=== PATIENT | female | born 1985 ===

== ENCOUNTER 2022-11-02 18:07 | Emergency (ER) | payer MEDICAID ==
[~2022-11-02] VITALS: Ht 154.9 cm; Wt 59.0 kg
[2022-11-02] MEDS ORDERED: METOCLOPRAMIDE HCL 10 MG TABLET PO ONE (18:45)
[2022-11-02] MEDS ORDERED: KETOROLAC TROMETHAMINE 30 MG INJ IM ONE (18:45)
[2022-11-02] MEDS ORDERED: METOCLOPRAMIDE HCL 10 MG TABLET ONE (18:46)
[2022-11-02] MEDS ORDERED: KETOROLAC TROMETHAMINE 30 MG INJ ONE (18:46)
[2022-11-02 19:29] LABS: *URINE HCG, QUAL NEGATIVE (NEGATIVE)
[2022-11-02] MEDS ORDERED: SUMATRIPTAN SUCCINATE 6 MG/0.5 ML VIAL SQ ONE ×2 (19:53→20:00)
[2022-11-02] MEDS ORDERED: ONDANSETRON 4 MG/2 ML VIAL ONE (20:02)
[2022-11-02] MEDS ORDERED: ONDANSETRON 4 MG/2 ML VIAL IM ONE (20:15)
[2022-11-02] MEDS ORDERED: DEXAMETHASONE 4 MG TABLET PO ONE (20:45)
[2022-11-02 20:59] VITALS: BP 117/70; TEMP 98.9; O2SAT 99
== END 2022-11-02 20:55 | disposition home or self-care (01) ==
LOC: ER 18:09
DX: G43.909 Migraine, unspecified, not intractable, without status migrainosus (principal); R11.2 Nausea with vomiting, unspecified
CPT/HCPCS: 99284; 84703; 96372 ×3; J1885; J2405; J3030; A4663; J8597

== ENCOUNTER 2022-11-22 18:30 | Emergency (ER) | payer MEDICAID, OTHER ==
[~2022-11-22] VITALS: Ht 157.5 cm; Wt 59.0 kg
[2022-11-22] MEDS ORDERED: ONDANSETRON ODT 4 MG TAB.RAPDIS SL ONE (19:45)
[2022-11-22] MEDS ORDERED: IV NORMAL SALINE 1000 ML BAG IV ONE (19:45)
[2022-11-22] MEDS ORDERED: MECLIZINE HCL 25 MG TABLET PO ONE (19:45)
[2022-11-22] MEDS ORDERED: ONDANSETRON ODT 4 MG TAB.RAPDIS ONE (19:52)
[2022-11-22] MEDS ORDERED: MECLIZINE HCL 25 MG TABLET ONE (19:52)
[2022-11-22 19:54] LABS: BASOPHILS % (AUTO) 0.2 % (0.0-2.0); EOSINOPHILS % (AUTO) 0.3 % (0.0-7.0); HEMATOCRIT 42.8 % (31.2-41.9); HEMOGLOBIN 14.4 g/dL (10.9-14.3); LYMPHOCYTES # (AUTO) 2.3 K/uL (0.8-4.8); MEAN CORPUSCULAR HEMOGLOBIN 29.3 uug (24.7-32.8); MEAN CORPUSCULAR HGB CONC 34 g/dL (32.3-35.6); MEAN CORPUSCULAR VOLUME 87.1 fL (75.5-95.3); MONOCYTES # (AUTO) 1.1 K/uL (0.1-1.30); MONOCYTES % (AUTO) 8.2 % (0.0-11.0); NEUTROPHILS # (AUTO) 10.1 K/uL (1.8-8.9); NEUTROPHILS % (AUTO) 74.3 % (38.5-71.5); PLATELET COUNT (AUTO) 396 K/uL (179-408); RED BLOOD CELL COUNT(AUTO) 4.92 MIL/uL (3.63-4.92); WHITE BLOOD COUNT (AUTO) 13.6 K/uL (3.8-11.8)
[2022-11-22 19:58] LABS: DIFFERENTIAL COMMENT 1
[2022-11-22 20:02] LABS: CALCIUM 9.9 mg/dL (8.5-10.1); CARBON DIOXIDE 27 mmol/L (21-32); CHLORIDE 105 mmol/L (98-107); CREATININE 0.5 mg/dL (0.6-1.3); GLUCOSE 112 mg/dL (74-106); POTASSIUM 4.4 mmol/L (3.5-5.1); SODIUM SERUM 141 mmol/L (136-145); UREA NITROGEN, BLOOD 12 mg/dL (7-18)
[2022-11-22 20:08] LABS: ALANINE AMINOTRANSFERASE 54 U/L (14-59); ALBUMIN 3.6 g/dL (3.4-5.0); ALKALINE PHOSPHATASE 80 U/L (50-136); ASPARTATE AMINOTRANSFERASE 16 U/L (15-37); BILIRUBIN,DIRECT 0.2 mg/dL (0.0-0.2); BILIRUBIN,TOTAL 0.8 mg/dL (0.2-1.0); TOTAL PROTEIN, SERUM 7.7 g/dL (6.4-8.2)
[2022-11-22 21:21] LABS: *AMPHETAMINE, URINE NEGATIVE (NEGATIVE); *BARBITURATE, URINE NEGATIVE (NEGATIVE); *BENZODIAZEPINE, URINE NEGATIVE (NEGATIVE); *CANNABINOID, URINE NEGATIVE (NEGATIVE); *COCCAINE, URINE NEGATIVE (NEGATIVE); *OPIATE, URINE NEGATIVE (NEGATIVE); *PHENCYCLIDINE SCREEN,URINE NEGATIVE (NEGATIVE); FENTANYL, URINE NEGATIVE (NEGATIVE)
[2022-11-22] MEDS ORDERED: ONDA4TAB11 PO (22:11)
[2022-11-22] MEDS ORDERED: MECL-159 PO (22:11)
[2022-11-22 22:16] VITALS: BP 118/69; O2SAT 98
== END 2022-11-22 22:16 | disposition home or self-care (01) ==
LOC: ER 18:32
DX: R42 Dizziness and giddiness (principal); R11.10 Vomiting, unspecified; G43.909 Migraine, unspecified, not intractable, without status migrainosus
CPT/HCPCS: 99284; 96360; 70450; 96361; 80076; 80048; 85025; 36415; 93005; 80307; J7040; A4663; J8597; Q0162

== ENCOUNTER 2025-03-06 21:56 | Emergency (ER) | payer MEDICAID, OTHER ==
[~2025-03-06] VITALS: Ht 154.9 cm; Wt 63.5 kg
[~2025-03-06 21:56] MED LIST: ONDA-243 PO; [UNRECOGNIZED DRUG - CODE] PO
[2025-03-06 22:09] VITALS: BP 152/95
[2025-03-06] MEDS ORDERED: KETOROLAC TROMETHAMINE 30 MG INJ ONE (23:33)
[2025-03-06] MEDS ORDERED: PROCHLORPERAZINE EDISYLATE 10 MG/2 ML VIAL ONE (23:33)
[2025-03-06] MEDS ORDERED: diphenhydrAMINE 50 MG/1 ML VIAL ONE (23:33)
[2025-03-06] MEDS: diphenhydrAMINE 50 MG/1 ML VIAL IV ONE (23:51)
[2025-03-06] MEDS: PROCHLORPERAZINE EDISYLATE 10 MG/2 ML VIAL IV ONE (23:51)
[2025-03-06] MEDS: KETOROLAC TROMETHAMINE 30 MG INJ IVP ONE (23:52)
[2025-03-06] MEDS ORDERED: OXYC-128 PO (23:58)
[2025-03-06] MEDS ORDERED: DICY20TA13 PO (23:58)
[2025-03-06] MEDS ORDERED: ONDA-243 PO (23:58)
[2025-03-07 00:43] VITALS: BP 140/90; TEMP 98; O2SAT 100
== END 2025-03-07 00:44 | disposition home or self-care (01) ==
LOC: ER 21:56
DX: G43.909 Migraine, unspecified, not intractable, without status migrainosus (principal); N91.2 Amenorrhea, unspecified
CPT/HCPCS: 99284; 96374; 96375; J1885; J1200; J0780; A4606; A4663